=== PATIENT | male | born 1975 ===

== ENCOUNTER 2017-02-21 08:27 | Observation (INO) | payer OTHER ==
[2017-02-21] MEDS ORDERED: Sodium Chloride 0.9% 1,000 ML IV STA (09:04)
[2017-02-21] MEDS ORDERED: Alum-Mag Hydrox-Simethicone Susp (30 mL) PO STA (09:05)
--- NOTE | 2017-02-21 09:10 | ED PDOC ---
Arrival/HPI - General Chief Complaint: Abdominal Pain Time Seen by Provider: 02/21/17 08:48 Historian: Patient - History of Present Illness Narrative History of Present Illness (Text): 02/21/17 09:00 Ken Broderick is a 41 year old male, whose past medical history includes hypertension and a back cyst removal, who presents to the emergency department complaining of intermittent diffuse cramping abdominal pain since 01:00 this morning. Patient states that he experienced non-bloody diarrhea x2. Patient denies any sick person contact, camping trips, recent travels, vomiting, fevers , or any other complaint at this time. Patient endorses that he takes aspirin every morning. Time/Duration: Other (01:00) Symptom Onset: Gradual Symptom Course: Unchanged Severity Level: Mild Activities at Onset: Rest Context: Home Past Medical History - Provider Review Nursing Documentation Reviewed: Yes - Cardiac Hx Cardiac Disorders: Yes Hx Hypertension: Yes - Pulmonary Hx Respiratory Disorders: No - Neurological Hx Neurological Disorder: No - HEENT Hx HEENT Disorder: No - Renal Hx Renal Disorder: No - Endocrine/Metabolic Hx Endocrine Disorders: No - Hematological/Oncological Hx Blood Disorders: No - Integumentary Hx Dermatological Disorder: No - Musculoskeletal/Rheumatological Hx Musculoskeletal Disorders: No - Gastrointestinal Hx Gastrointestinal Disorders: No - Genitourinary/Gynecological Hx Genitourinary Disorders: No - Psychiatric Hx Psychophysiologic Disorder: No Hx Substance Use: No Family/Social History - Physician Review Nursing Documentation Reviewed: Yes Family/Social History: No Known Family HX Smoking Status: Never Smoked Hx Alcohol Use: Yes Frequency of alcohol use: Few days per week Hx Substance Use: No Allergies/Home Meds Allergies/Adverse Reactions: Allergies No Known Allergies Allergy (Verified 02/21/17 08:35) Home Medications: Home Meds Medication Instructions Recorded Confirmed Aspirin [Aspirin Chewable] 81 mg PO DAILY 02/21/17 02/21/17 amLODIPine [Norvasc] 10 mg PO DAILY 02/21/17 02/21/17 Review of Systems - Physician Review All systems were reviewed & negative as marked: Yes - Review of Systems Constitutional: absent: Fevers, Night Sweats Eyes: absent: Vision Changes ENT: absent: Hearing Changes Respiratory: absent: SOB, Cough Cardiovascular: absent: Chest Pain Gastrointestinal: Abdominal Pain, Diarrhea. absent: Vomiting Genitourinary Male: absent: Dysuria, Frequency Musculoskeletal: absent: Arthralgias, Back Pain, Neck Pain Skin: absent: Rash, Pruritis Neurological: absent: Headache Endocrine: absent: Diaphoresis Hemo/Lymphatic: absent: Adenopathy Psychiatric: absent: Anxiety Physical Exam - Physical Exam Narrative Physical Exam (Text): Constitutional: No acute distress. Head: Normocephalic. Atraumatic. Eyes: PERRL. ENT: Moist mucous membranes. Neck: Supple. Cardiovascular: Regular rate. Chest: No tenderness. Respiratory: Clear to auscultation bilaterally. GI: Soft. Nontender. Nondistended. Back: No CVA tenderness. Musculoskeletal: No tenderness or swelling of extremities. Skin: No rash. Neurologic: Alert, no focal deficit. Vital Signs Reviewed: Yes Vital Signs Temp Pulse Pulse Resp BP Pulse Ox 02/21/17 13:35 98.6 F 56 L 56 L 16 156/104 H 02/21/17 13:13 69 16 150/100 H 99 02/21/17 11:38 56 L 16 156/104 H 99 02/21/17 11:00 98.6 F 58 L 17 161/102 H 100 02/21/17 09:25 179/109 H 02/21/17 08:35 98.8 F 59 L 16 171/108 H 100 Temperature: Afebrile Blood Pressure: Hypertensive Pulse: Bradycardic Respiratory Rate: Normal Appearance: Positive for: Well-Appearing, Non-Toxic, Comfortable Pain Distress: None Mental Status: Positive for: Alert and Oriented X 3 Medical Decision Making - Lab Interpretations Lab Results: 02/21/17 09:35 02/21/17 09:35 Lab Results 02/21/17 12:15: Blood Type O POSITIVE, Antibody Screen Negative, BBK History Checked No verified bt 02/21/17 12:15: PT 10.5, INR 0.97, APTT 30.4 02/21/17 09:35: Sodium 136, Potassium 4.7, Chloride 101, Carbon Dioxide 25, Anion Gap 15, BUN 17, Creatinine 0.8, Est GFR ( Amer) > 60, Est GFR (Non- Af Amer) > 60, Random Glucose 123 H, Calcium 9.4, Total Bilirubin 0.7, AST 35, ALT 66 H, Alkaline Phosphatase 112, Total Protein 8.0, Albumin 4.3, Globulin 3.7 , Albumin/Globulin Ratio 1.2, Lipase 77 02/21/17 09:35: Urine Color Yellow, Urine Appearance Clear, Urine pH 8.5, Ur Specific [place] 1.015, Urine Protein Trace H, Urine Glucose (UA) Negative, Urine Ketones Negative, Urine Blood Negative, Urine Nitrate Negative, Urine Bilirubin Negative, Urine Urobilinogen 0.2, Ur Leukocyte Esterase Negative, Urine RBC 1 - 3, Urine WBC 0 - 2, Ur Epithelial Cells 0 - 2 02/21/17 09:35: WBC 14.1 H, RBC 5.15, Hgb 15.4, Hct 42.9, MCV 83.3, MCH 29.9, MCHC 35.9, RDW 12.3, Plt Count 233, MPV 11.0, Gran % 81.8 H, Lymph % (Auto) 12.2 L, Stephens % (Auto) 5.5, Eos % (Auto) 0.4 L, Baso % (Auto) 0.1, Gran # 11.57 H , Lymph # 1.7, Stephens # 0.8 H, Eos # 0.1, Baso # 0.02 I have reviewed the lab results: Yes - RAD Interpretation Radiology Orders: 02/21/17 10:20 ABD & PELVIS IV CONTRAST ONLY [CT] Stat 02/21/17 12:31 CHEST PORTABLE [RAD] Stat - Medication Orders Current Medication Orders: Amlodipine Besylate (Norvasc) 10 mg PO DAILY TIFFANIE Famotidine (Pepcid) 20 mg IVP DAILY TIFFANIE Hydromorphone HCl (Dilaudid) 0.5 mg IVP Q15M PRN PRN Reason: Pain, moderate (4-7) Stop: 02/21/17 19:16 Sodium Chloride (Sodium Chloride 0.9%) 1,000 mls @ 150 mls/hr IV .Q6H40M TIFFANIE Piperacillin Sod/Tazobactam Sod (Zosyn 3.375 In Ns 100ml) 100 mls @ 200 mls/hr IVPB Q6 TIFFANIE PRN Reason: Protocol Stop: 02/21/17 18:29 Morphine Sulfate (Morphine) 4 mg IVP Q4H PRN PRN Reason: Pain, moderate (4-7) Ondansetron HCl (Zofran Inj) 4 mg IVP Q4H PRN PRN Reason: Nausea/Vomiting Discontinued Medications Al Hydrox/Mg Hydrox/Simethicone (Maalox Plus 30 Ml) 30 ml PO STAT STA Stop: 02/21/17 09:06 Last Admin: 02/21/17 09:19 Dose: 30 ml Amlodipine Besylate (Norvasc) 10 mg PO STAT STA Stop: 02/21/17 09:06 Last Admin: 02/21/17 09:25 Dose: 10 mg Famotidine (Pepcid) 20 mg IVP STAT STA Stop: 02/21/17 09:06 Last Admin: 02/21/17 09:23 Dose: 20 mg Fentanyl (Fentanyl) Confirm Administered Dose 100 mcg .ROUTE .STK-MED ONE Stop: 02/21/17 14:59 Fentanyl (Fentanyl) Confirm Administered Dose 100 mcg .ROUTE .STK-MED ONE Stop: 02/21/17 16:16 Glycopyrrolate (Robinul) Confirm Administered Dose 0.2 mg .ROUTE .STK-MED ONE Stop: 02/21/17 16:32 Sodium Chloride (Sodium Chloride 0.9%) 1,000 mls @ 999 mls/hr IV .Q1H1M STA Stop: 02/21/17 10:04 Last Admin: 02/21/17 09:20 Dose: 999 mls/hr Sodium Chloride (Sodium Chloride 0.9%) 1,000 mls @ 100 mls/hr IV .Q10H TIFFANIE Piperacillin Sod/Tazobactam Sod (Zosyn 3.375 In Ns 100ml) 100 mls @ 200 mls/hr IVPB Q6 TIFFANIE PRN Reason: Protocol Stop: 02/22/17 00:29 Iohexol (Omnipaque 350 100 Ml) Confirm Administered Dose 350 mg .ROUTE .STK-MED ONE Stop: 02/21/17 10:38 Lidocaine HCl (Lidocaine 2% 20ml Vial) Confirm Administered Dose 20 ml .ROUTE .STK-MED ONE Stop: 02/21/17 14:59 Midazolam HCl (Versed Inj) Confirm Administered Dose 2 mg .ROUTE .STK-MED ONE Stop: 02/21/17 14:59 Morphine Sulfate (Morphine) 4 mg IVP STAT STA Stop: 02/21/17 10:18 Last Admin: 02/21/17 10:27 Dose: 4 mg Neostigmine Methylsulfate (Neostigmine Methylsulfate) Confirm Administered Dose 3 mg IV .STK-MED ONE Stop: 02/21/17 16:31 Ondansetron HCl (Zofran Inj) 8 mg IVP STAT STA Stop: 02/21/17 09:05 Last Admin: 02/21/17 09:20 Dose: 8 mg Pneumococcal Polyvalent Vaccine (Pneumovax 23 Vaccine) 0.5 ml IM .ONCE ONE Stop: 02/21/17 13:46 Propofol (Diprivan) Confirm Administered Dose 200 mg .ROUTE .STK-MED ONE Stop: 02/21/17 14:59 Rocuronium [place] (Zemuron) Confirm Administered Dose 50 mg .ROUTE .STK-MED ONE Stop: 02/21/17 14:59 Sevoflurane (Ultane Novation) Confirm Administered Dose 250 ml .ROUTE .STK-MED ONE Stop: 02/21/17 15:39 Succinylcholine Chloride (Quelicin) Confirm Administered Dose 200 mg IV .STK- MED ONE Stop: 02/21/17 14:59 ED OBSERVATION Date of observation admission: 02/21/17 Time of observation admission: 10:20 - Observation admission statement Patient is being placed in observation because:: 02/21/17 09:00 Impression: 41 year old male complaining of intermittent diffuse cramping abdominal pain since 01:00 this morning. Likely viral illness, further asses with labs. No tenderness on exam, therefore no imaging at this time. - Goals of Observation Goals of observation are:: Plan: -- Urinalysis -- Labs -- Maalox, Norvasc, Pepcid, Zofran, and IV fluids -- Reassess and disposition - Progress Note Progress Note: 02/21/17 10:20 Patient with worsening pain, more in RLQ at this point with tenderness and guarding. Morphine ordered, will send for CT. 02/21/17 11:[address]: Dictator : Jevon Lombardo MD FINDINGS: LOWER THORAX: No focal consolidation or effusion. No evidence of basilar pneumothorax. Minor subpleural presumed postinflammatory nodular densities seen in the posterior sulci bilaterally. There is a small hiatal hernia. Heart size within range of normal. No evidence of significant pericardial effusion. LIVER: Liver is enlarged measuring 19.3 cm in CC dimension. Mild diffuse fatty hepatic infiltration. No obvious hepatic mass or collection. Portal and splenic veins are opacified. GALLBLADDER AND BILE DUCTS: Gallbladder is physiologically distended. No evidence of intraluminal gallbladder calculi. PANCREAS: Visualized portions of the pancreas are grossly unremarkable. No obvious pancreatic mass collection or calcification. No significant pancreatic ductal dilatation. SPLEEN: Spleen upper limits of normal measuring nearly 12.3 cm in ap dimension. No splenic mass collection or calcification. ADRENALS:There are no adrenal lesions. KIDNEYS AND URETERS:Kidneys demonstrate symmetric nephrograms. No evidence of nephrolithiasis or hydronephrosis. No obvious renal mass or collection. BLADDER:Urinary bladder is incompletely distended. No evidence of intraluminal urinary bladder calculi. REPRODUCTIVE:Calcification seen in the left aspect of the seminal vesicles. Prostate gland appears unremarkable. APPENDIX: The appendix is mildly dilated measuring up to 11.4 mm in greatest diameter associated with mild wall thickening -wall edema. . Some very minimal infiltration changes seen in the periappendiceal mesentery. Findings are consistent with early acute appendicitis. The appendix is best seen on coronal image number [id number] and axial image number [id number]. BOWEL: Evaluation of the bowel is limited due to the lack of oral contrast. Stomach is distended with food debris liquid and air. Visualized loops of small bowel exhibit normal contour and caliber. No evidence of acute mechanical small bowel obstruction. Moderate amount of stool seen within the cecum ascending colon. PERITONEUM:Unremarkable. No fluid collection. No free air. Tiny fat containing umbilical hernia. LYMPH NODES:Few small nonspecific retroperitoneal lymph nodes VASCULATURE:Unremarkable. No aortic aneurysm. BONES:Minor multilevel degenerative spondylosis of the lower thoracic and lumbar spine. OTHER FINDINGS: None. IMPRESSION: The appendix is mildly dilated measuring up to 11.4 mm in greatest diameter associated with mild wall thickening -wall edema. . Some very minimal infiltration changes seen in the periappendiceal mesentery. Findings are consistent with early acute appendicitis. Mild hepatomegaly with mild fatty hepatic infiltration. . Borderline splenomegaly. Note that these findings were discussed with Dr. Carreon at approximately 11:50 a.m. with written down and read back verification. Accepted for admission by Dr. Hart and will go to OR today. - Scribe Statement The provider has reviewed the documentation as recorded by the [employer] Provider Scribe Attestation: All medical record entries made by the Scribe were at my direction and personally dictated by me. I have reviewed the chart and agree that the record accurately reflects my personal performance of the history, physical exam, medical decision making, and the department course for this patient. I have also personally directed, reviewed, and agree with the discharge instructions and disposition. Disposition/Present on Arrival - Present on Arrival Any Indicators Present on Arrival: No History of DVT/PE: No History of Uncontrolled Diabetes: No Urinary Catheter: No History of Decub. Ulcer: No History Surgical Site Infection Following: None - Disposition Have Diagnosis and Disposition been Completed?: Yes Diagnosis: Acute appendicitis Disposition: HOSPITALIZED Disposition Time: 10:20 Patient Plan: Admission Condition: FAIR
[2017-02-21 09:42] LABS: PH,URINE 8.5 (4.7-8.0); URINE BILIRUBIN NEGATIVE (NEGATIVE); URINE BLOOD NEGATIVE (NEGATIVE); URINE GLUCOSE (UA) NEGATIVE (NEGATIVE); URINE LEUKOCYTE ESTERASE NEGATIVE Leu/uL (NEGATIVE); URINE NITRATE NEGATIVE (NEGATIVE); URINE PROTEIN TRACE mg/dL (<30 mg/dL); URINE UROBILINOGEN 0.2 E.U./dL (<1 E.U./dL)
[2017-02-21 09:43] LABS: BASO # 0.02 K/mm3 (0.0-2.0); BASO % 0.1 % (0.0-3.0); EOS # 0.1 (0.0-0.7); EOS % 0.4 % (1.5-5.0); GRAN # 11.57 (1.4-6.5); GRAN % 81.8 % (50.0-68.0); HEMOGLOBIN 15.4 gm/dL (14.0-18.0); LYMPH # 1.7 (1.2-3.4); LYMPH % 12.2 % (22.0-35.0); MEAN CELL VOLUME 83.3 fL (80.0-105.0); MEAN CORPUSCULAR HEMOGLOBIN 29.9 pg (25.0-35.0); MEAN CORPUSCULAR HGB CONC 35.9 g/dl (31.0-37.0); MONO # 0.8 (0.1-0.6); MONO % 5.5 % (1.0-6.0); PLATELET COUNT 233 10^3/uL (120.0-450.0); RBC 5.15 10^6/uL (3.5-6.1); RED CELL DISTRIBUTION WIDTH 12.3 % (11.5-14.5); WHITE BLOOD COUNT 14.1 10^3/ul (4.5-11.0)
[2017-02-21 09:49] LABS: URINE APPEARANCE CLEAR (CLEAR); URINE COLOR YELLOW (YELLOW)
[2017-02-21 09:52] LABS: ALB/GLOB RATIO 1.2 (1.1-1.8); ALBUMIN 4.3 g/dL (3.0-4.8); ALT/SGPT 66 U/L (7-56); AST/SGOT 35 U/L (15-59); BLOOD UREA NITROGEN 17 mg/dL (7-21); CALCIUM 9.4 mg/dL (8.4-10.5); GFR AFRICAN-AMERICAN > 60; GFR NON-AFRICAN AMERICAN > 60; LIPASE 77 U/L (23-300)
[2017-02-21 09:54] LABS: URINE EPITHELIAL CELLS 0 - 2 /hpf (0-5); URINE WBC 0 - 2 /hpf (0-6)
[2017-02-21] MEDS ORDERED: Morphine 4 mg/ml ISec IVP STA (10:17)
[2017-02-21] MEDS ORDERED: Iohexol 350 MG/100 ML VIAL ONE (10:37)
--- NOTE | 2017-02-21 12:00 | CT ---
PROCEDURE: CT scan of the abdomen and pelvis dated 02/21/2017 HISTORY: Right lower quadrant pain. COMPARISON: None. TECHNIQUE: Contiguous axial images of the abdomen and pelvis performed in standard fashion following intravenous injection of approximately 70 cc Omnipaque 350 contrast material. Additional 2 dimensional sagittal and coronal reformats provided. . Radiation dose: Total exam DLP = 1035.62 mGy-cm. This CT exam was performed using one or more of the following dose reduction techniques: Automated exposure control, adjustment of the mA and/or kV according to patient size, and/or use of iterative reconstruction technique. FINDINGS: LOWER THORAX: No focal consolidation or effusion. No evidence of basilar pneumothorax. Minor subpleural presumed postinflammatory nodular densities seen in the posterior sulci bilaterally. There is a small hiatal hernia. Heart size within range of normal. No evidence of significant pericardial effusion. LIVER: Liver is enlarged measuring 19.3 cm in CC dimension. Mild diffuse fatty hepatic infiltration. No obvious hepatic mass or collection. Portal and splenic veins are opacified. GALLBLADDER AND BILE DUCTS: Gallbladder is physiologically distended. No evidence of intraluminal gallbladder calculi. PANCREAS: Visualized portions of the pancreas are grossly unremarkable. No obvious pancreatic mass collection or calcification. No significant pancreatic ductal dilatation. SPLEEN: Spleen upper limits of normal measuring nearly 12.3 cm in ap dimension. No splenic mass collection or calcification. ADRENALS: There are no adrenal lesions. KIDNEYS AND URETERS: Kidneys demonstrate symmetric nephrograms. No evidence of nephrolithiasis or hydronephrosis. No obvious renal mass or collection. BLADDER: Urinary bladder is incompletely distended. No evidence of intraluminal urinary bladder calculi. REPRODUCTIVE: Calcification seen in the left aspect of the seminal vesicles. Prostate gland appears unremarkable. APPENDIX: The appendix is mildly dilated measuring up to 11.4 mm in greatest diameter associated with mild wall thickening -wall edema. . Some very minimal infiltration changes seen in the periappendiceal mesentery. Findings are consistent with early acute appendicitis. The appendix is best seen on coronal image number [id number] and axial image number [id number]. BOWEL: Evaluation of the bowel is limited due to the lack of oral contrast. Stomach is distended with food debris liquid and air. Visualized loops of small bowel exhibit normal contour and caliber. No evidence of acute mechanical small bowel obstruction. Moderate amount of stool seen within the cecum ascending colon. PERITONEUM: Unremarkable. No fluid collection. No free air. Tiny fat containing umbilical hernia. LYMPH NODES: Few small nonspecific retroperitoneal lymph nodes VASCULATURE: Unremarkable. No aortic aneurysm. BONES: Minor multilevel degenerative spondylosis of the lower thoracic and lumbar spine. OTHER FINDINGS: None. IMPRESSION: The appendix is mildly dilated measuring up to 11.4 mm in greatest diameter associated with mild wall thickening -wall edema. . Some very minimal infiltration changes seen in the periappendiceal mesentery. Findings are consistent with early acute appendicitis. Mild hepatomegaly with mild fatty hepatic infiltration. . Borderline splenomegaly. Note that these findings were discussed with Dr. Carreon at approximately 11:50 a.m. with written down and read back verification.
--- NOTE | 2017-02-21 12:41 | CP.PCM.HP ---
History of Present Illness - History of Present Illness History of Present Illness: HISTORY AND PHYSICAL FOR DR. DIAZ 41M presents to [facility] with abdominal pain of the duration of 12 hours. Patient states pain was originally located in the periumbilical region and as now localized to the RLQ. He admits to feeling nauseous, but denies vomiting. He admits to subjective fevers and diaphoresis. Denies chest pain, shortness of breath, diarrhea, constipation. PMH: HTN PSH: multiple cyst removals Social: denies tobacco, admits to daily drinking, denies illicit drugs Allergies: NKDA Present on Admission - Present on Admission Any Indicators Present on Admission: No Past Patient History - Past Social History Smoking Status: Never Smoked Alcohol: Other (daily) - CARDIAC Hx Hypertension: Yes - PULMONARY Hx Respiratory Disorders: No - NEUROLOGICAL Hx Neurological Disorder: No - HEENT Hx HEENT Problems: No - RENAL Hx Chronic Kidney Disease: No - ENDOCRINE/METABOLIC Hx Endocrine Disorders: No - HEMATOLOGICAL/ONCOLOGICAL Hx Blood Disorders: No - INTEGUMENTARY Hx Dermatological Problems: No - MUSCULOSKELETAL/RHEUMATOLOGICAL Hx Musculoskeletal Disorders: No - GASTROINTESTINAL Hx Gastrointestinal Disorders: No - GENITOURINARY/GYNECOLOGICAL Hx Genitourinary Disorders: No - PSYCHIATRIC Hx Psychophysiologic Disorder: No Hx Substance Use: No - SURGICAL HISTORY Hx Surgeries: Yes (cyst removal) Meds Allergies/Adverse Reactions: Allergies Allergy/AdvReac Type Severity Reaction Status Date / Time No Known Allergies Allergy Verified 02/21/17 08:35 Physical Exam - Constitutional Appears: Non-toxic, No Acute Distress, Other (uncomfortable, diaphoresis) - Head Exam Head Exam: ATRAUMATIC - Eye Exam Eye Exam: EOMI, PERRL - ENT Exam ENT Exam: Mucous Membranes Moist - Respiratory Exam Respiratory Exam: Clear to Auscultation Bilateral, NORMAL BREATHING PATTERN - Cardiovascular Exam Cardiovascular Exam: REGULAR RHYTHM, +S1, +S2 - GI/Abdominal Exam GI & Abdominal Exam: Soft, Tenderness (RLQ tenderness). absent: Distended, Firm , Rebound, Rigid - Extremities Exam Extremities exam: Negative for: pedal edema, tenderness - Neurological Exam Neurological exam: Alert, Oriented x3 - Psychiatric Exam Psychiatric exam: Normal Affect, Normal Mood - Skin Skin Exam: Dry, Intact, Normal Color, Warm Results - Vital Signs Recent Vital Signs: Last Vital Signs Temp 98.6 F 02/21/17 11:00 Pulse 56 L 02/21/17 11:38 Resp 16 02/21/17 11:38 BP 156/104 H 02/21/17 11:38 Pulse Ox 99 02/21/17 11:38 - Labs Result Diagrams: 02/21/17 09:35 02/21/17 09:35 Assessment & Plan - Assessment and Plan (Free Text) Assessment: 41M [address]: appendix 11.4mm, appendix wall edema Plan: - NPO, pain control, anti-emetics - Antibiotics, IV fluids - Pre-op patient/ Consent - Patient needs lap appendectomy Discussed with Dr. Tanner King, PGY2
[2017-02-21] MEDS ORDERED: Sodium Chloride 0.9% 1,000 ML IV SCH ×2 (12:45→12:52)
--- NOTE | 2017-02-21 12:46 | RAD ---
HISTORY: pre-op COMPARISON: No prior. FINDINGS: LUNGS: Suspect minor bibasilar atelectasis PLEURA: No significant pleural effusion identified, no pneumothorax apparent. CARDIOVASCULAR: Heart size is upper limits of normal. OSSEOUS STRUCTURES: No significant abnormalities. VISUALIZED UPPER ABDOMEN: Normal. OTHER FINDINGS: None. IMPRESSION: Suspect minor bibasilar atelectasis.
[2017-02-21 12:47] LABS: INR 0.97 (0.93-1.08); PARTIAL THROMBOPLASTIN TIME 30.4 Seconds (23.7-30.8); PROTHROMBIN TIME 10.5 Seconds (9.9-11.8)
[2017-02-21] MEDS ORDERED: Piperacillin/Tazobact 3.375 gm 100 ML IVPB SCH ×2 (12:54→18:00)
--- NOTE | 2017-02-21 13:42 | CARD ---
APPROVED REPORT EKG Measurement Heart [id number] [id number] <Conclusion> Sinus bradycardia Otherwise normal ECG
[2017-02-21 13:45] VITALS: BMI 34.0
[2017-02-21] MEDS ORDERED: Pneumococcal 23-Valent Vaccine IM ONE (13:45)
[2017-02-21] MEDS ORDERED: Propofol 10 mg/ml Inj (20 ML) ONE (14:58)
[2017-02-21] MEDS ORDERED: Lidocaine 2% Inj (20ml) ONE (14:58)
[2017-02-21] MEDS ORDERED: Rocuronium 10 mg/ml (5 ml) ONE (14:58)
[2017-02-21] MEDS ORDERED: Midazolam 2 MG/2 ML VIAL ONE (14:58)
[2017-02-21] MEDS ORDERED: Succinylcholine 200 mg/10 ml Inj IV ONE (14:58)
[2017-02-21] MEDS ORDERED: Sevoflurane - Inhalation Anesthetic Liq (250 ml) ONE (15:38)
[2017-02-21] MEDS ORDERED: Neostigmine Methylsulfate 3mg/3ml Syringe IV ONE (16:30)
[2017-02-21] MEDS ORDERED: Glycopyrrolate 0.2 mg/ml (2ml vial) ONE (16:31)
[2017-02-21] MEDS ORDERED: HYDROmorphone 0.5 mg/0.5 ml ISec IVP PRN (17:15)
--- NOTE | 2017-02-21 17:20 | PCM.SURG1 ---
Surgeon's Initial Post Op Note - Surgeon's Notes Surgeon: Tanner Senior Php Web Developer: Christine PGY2, Eng, PGY1 Pre-Operative Diagnosis: Acute Appendicitis Operative Findings: Inflammed appendix Post-Operative Diagnosis: Acute Appendicitis Operation Performed: Laparoscopic Appendectomy Specimen/Specimens Removed: Appendix, mesoappendix Estimated Blood Loss: EBL {In ML}: 20 Date of Surgery/Procedure: 02/21/17 Time of Surgery/Procedure: 16:07
[2017-02-21] MEDS: Morphine 4 mg/ml ISec IVP PRN (18:46)
[2017-02-21 21:48] LABS: HEMOGLOBIN 14.2 gm/dL (14.0-18.0); MEAN CELL VOLUME 83.9 fL (80.0-105.0); MEAN CORPUSCULAR HEMOGLOBIN 29.8 pg (25.0-35.0); MEAN CORPUSCULAR HGB CONC 35.5 g/dl (31.0-37.0); MEAN PLATELET VOLUME 11.1 fl (7.0-11.0); RBC 4.77 10^6/uL (3.5-6.1); RED CELL DISTRIBUTION WIDTH 12.4 % (11.5-14.5); WHITE BLOOD COUNT 16.7 10^3/ul (4.5-11.0)
[2017-02-22] MEDS: Morphine 4 mg/ml ISec IVP PRN (04:22)
[2017-02-22] MEDS: Piperacillin/Tazobact 3.375 gm 100 ML IVPB SCH ×2 (05:43→12:26)
[2017-02-22 07:33] VITALS: PULSE 76; RESP 20; TEMP 98.3; O2SAT 98
[2017-02-22 07:53] LABS: MEAN CELL VOLUME 85.6 fL (80.0-105.0); MEAN CORPUSCULAR HEMOGLOBIN 29.7 pg (25.0-35.0); MEAN CORPUSCULAR HGB CONC 34.7 g/dl (31.0-37.0); MEAN PLATELET VOLUME 11.1 fl (7.0-11.0); RBC 4.72 10^6/uL (3.5-6.1); RED CELL DISTRIBUTION WIDTH 12.8 % (11.5-14.5)
[2017-02-22 09:28] VITALS: BP 138/87
--- NOTE | 2017-02-22 10:20 | CP.PCM.PN ---
Subjective - Date & Time of Evaluation Date of Evaluation: 02/22/17 Time of Evaluation: 10:17 - Subjective Subjective: General Surgery Progress Note: Resident: Ann Attending: Tanner HPI: Pt seen and examined at bedside. Doing well with no complaints at this time. No pain. Tolerated diet. +flatus, -BM. -N/V/D/F. Objective - Vital Signs/Intake and Output Vital Signs (last 24 hours): Temp Pulse Resp BP Pulse Ox 98.3 F 76 20 138/87 98 02/22/17 07:31 02/22/17 07:31 02/22/17 07:31 02/22/17 09:18 02/22/17 07:31 Intake and Output: 02/22/17 02/22/17 06:59 18:59 Intake Total 3720 Balance 3720 - Medications Medications: Current Medications Amlodipine Besylate (Norvasc) 10 mg PO DAILY [facility] Last Admin: 02/22/17 09:18 Dose: 10 mg Famotidine (Pepcid) 20 mg IVP DAILY [facility] Last Admin: 02/22/17 09:18 Dose: 20 mg Sodium Chloride (Sodium Chloride 0.9%) 1,000 mls @ 150 mls/hr IV .Q6H40M TIFFANIE Last Admin: 02/22/17 01:45 Dose: 150 mls/hr Piperacillin Sod/Tazobactam Sod (Zosyn 3.375 In Ns 100ml) 100 mls @ 200 mls/hr IVPB Q6 TIFFANIE PRN Reason: Protocol Stop: 02/22/17 12:29 Last Admin: 02/22/17 05:43 Dose: 200 mls/hr Morphine Sulfate (Morphine) 4 mg IVP Q4H PRN PRN Reason: Pain, moderate (4-7) Last Admin: 02/22/17 04:22 Dose: 4 mg Ondansetron HCl (Zofran Inj) 4 mg IVP Q4H PRN PRN Reason: Nausea/Vomiting - Labs Labs: 02/22/17 06:45 PT 10.5 Seconds (9.9-11.8) 02/21/17 12:15 INR 0.97 (0.93-1.08) 02/21/17 12:15 APTT 30.4 Seconds (23.7-30.8) 02/21/17 12:15 - Constitutional Appears: Well - Head Exam Head Exam: NORMAL INSPECTION - Eye Exam Eye Exam: EOMI - ENT Exam ENT Exam: Mucous Membranes Moist - Respiratory Exam Respiratory Exam: Clear to Ausculation Bilateral - Cardiovascular Exam Cardiovascular Exam: REGULAR RHYTHM - GI/Abdominal Exam GI & Abdominal Exam: Soft. absent: Distended, Firm, Tenderness Additional comments: dressings removed. Incisions c/d/i with no evidence of infection Assessment and Plan - Assessment and Plan (Free Text) Assessment: 41 y/o male s/p appy POD 1 * pain well controlled * tolerating regular diet * improved WBC * pt cleared for d/c with instructions to f/u in office in 1 week Renard Juarez DO PGY-1
--- NOTE | 2017-02-23 07:51 | OP ---
PROCEDURE DATE: 02/21/2017 PREOPERATIVE DIAGNOSIS: Acute appendicitis. POSTOPERATIVE DIAGNOSIS: Acute appendicitis. PROCEDURE: Laparoscopic appendectomy. SURGEON: Dr. Hart CANDY CUTTER HAND: Christine PGY2 TYPE OF ANESTHESIA: General. ANESTHESIA ADMINISTERED BY: Dr. Minor ESTIMATED BLOOD LOSS DURING PROCEDURE: 20 mL. DESCRIPTION OF OPERATION: With the patient in the supine position under adequate general anesthesia, the abdomen was prepped and draped in the usual sterile manner. A Veress needle puncture was performed at the umbilicus with inflation to 15 cm water pressure of CO2 and a 10 mL laparoscopic trocar was inserted via an infraumbilical incision. Under direct vision, 5 mm and 12 mm trocars were inserted in the left lower quadrant. The cecum was visualized, it was noted to be lying relatively high in the right gutter. The cecum was gently elevated to expose the appendix which was noted acutely inflamed. The appendix was grasped and elevated. The mesoappendix was dissected and divided with an endo-ALICE stapler. The appendix itself was divided also with an endo-ALICE stapler and the area of the appendiceal artery was reinforced with hemoclips. The appendix was placed in a specimen retrieval bag and removed via the 12 mm port site. The right gutter was irrigated and suctioned. The pneumoperitoneum was released and the trocars were removed. The 12 mm and umbilical port sites were closed with fascial sutures of 0 Vicryl. All incisions were closed with 4-0 Monocryl subcuticular sutures and Steri-Strips. Dry sterile dressings were applied. The patient tolerated the procedure well and transferred to recovery room in stable condition. Afsaneh Hart MD [facility] # [id number] [facility]
== END 2017-02-22 13:48 | disposition home or self-care (01) ==
LOC: ED 08:27 → EROBSV 10:20 → INTOOBSV 12:39 → OBSVTOIN 12:39 → ERH 12:43 → 5RNO 14:09
PROVIDERS: ADMIT Specialist; ATTEND Specialist
DX: K35.3 Acute appendicitis with localized peritonitis (principal); I10 Essential (primary) hypertension
CPT/HCPCS: 36415; 44970; 71010; 74177; 80053; 81001; 83690; 85025; 85027; 85610; 85730; 86850; 86900; 88304; 93005; 96361; 96374; 96375; 99285; G0378; J0330; J2250; J2270; J2405; J2543; J2704; J2710; J3010; J7040; Q9967